=== PATIENT | female | born 1965 | race Caucasian/White ===

== ENCOUNTER → 2019-06-03 | Outpatient (CLI) | payer OTHER | END | disposition home or self-care (01) | LOC: ROC 07:20 | PROVIDERS: ATTEND Radiology Radiation Oncology | DX: Z51.0 Encounter for antineoplastic radiation therapy (principal); C78.1 Secondary malignant neoplasm of mediastinum; C50.912 Malignant neoplasm of unspecified site of left female breast; Z17.0 Estrogen receptor positive status [ER+]; Z90.13 Acquired absence of bilateral breasts and nipples | CPT/HCPCS: 77300; 77301; 77334; 77338; 99214; G0463 ==

== ENCOUNTER 2019-07-01 13:59 | Outpatient (CLI) | payer OTHER ==
[2019-07-01] MEDS ORDERED: MORP-52 PO (20:10)
[2019-07-01] MEDS ORDERED: RIVA20TA PO (20:10)
[2019-07-01] MEDS ORDERED: MORP30TA81 PO (20:10)
[2019-07-01] MEDS ORDERED: OXYC10TA6 PO (20:10)
[2019-07-01] MEDS ORDERED: OMEP40CA42 PO (20:10)
== END 2019-07-01 23:59 | disposition home or self-care (01) ==
LOC: ROC 13:59
PROVIDERS: ATTEND Radiology Radiation Oncology
DX: C78.1 Secondary malignant neoplasm of mediastinum (principal); Z90.13 Acquired absence of bilateral breasts and nipples; Z85.3 Personal history of malignant neoplasm of breast; Z92.3 Personal history of irradiation
CPT/HCPCS: 99212; G0463

== ENCOUNTER 2019-07-01 14:39 | Inpatient (IN) | payer OTHER ==
[~2019-07-01] VITALS: Ht 160 cm; Wt 62.8 kg
--- NOTE | 2019-07-01 14:54 | NUR ---
EKG done in triage
[2019-07-01] MEDS ORDERED: SODIUM CHLORIDE FLUSH 10ML SYR IVF ONE (15:30)
[2019-07-01] MEDS ORDERED: SODIUM CHLORIDE 0.9% 1,000ML IVBOLUS ONE (15:30)
--- NOTE | 2019-07-01 15:52 | NUR ---
PT CAME IN CO OF SOB X2DAYS. DENIES FEVER, COLD, CHILLS. MD IS BEDSIDE FOR EVALUATION. PT PLACED ON 2LITERS VIA NC AND IS 95%. 2 BLANKETS PROVIDED.
[2019-07-01 16:04] LABS: INTERNATIONAL NORMALIZED RATIO 1.03 (0.93-1.1); PROTHROMBIN TIME 10.9 Seconds (9.6-11.5)
[2019-07-01 16:06] LABS: ALANINE AMINOTRANSFERASE 62 U/L (12-78); ALBUMIN 2.6 g/dL (3.4-5.0); ANION GAP 12 mmol/L (5-15); CALCIUM 8.1 mg/dL (8.5-10.1); CHLORIDE 102 mmol/L (98-107)
[2019-07-01 16:11] LABS: CREATININE 0.74 mg/dL (0.55-1.02)
[2019-07-01 16:11] LABS: MICROSCOPIC INDICATED
[2019-07-01 16:12] LABS: ALKALINE PHOSPHATASE 105 U/L (45-117); BILIRUBIN,TOTAL 0.8 mg/dL (0.2-1.0); TOTAL PROTEIN 7.6 g/dL (6.4-8.2); TROPONIN I < 0.015 ng/mL (0.000-0.045)
[2019-07-01 16:20] LABS: CULTURE INDICATED? NO
[2019-07-01 16:27] LABS: BASOPHILS % (AUTO) 0 % (0-1); EOSINOPHILS # (AUTO) 0.11 x10^3/uL (0-0.4); EOSINOPHILS % (AUTO) 2 % (1-7); LYMPHOCYTES # (AUTO) 0.27 x10^3/uL (1-3.4); LYMPHOCYTES % (AUTO) 5 % (22-44); MD MORPH REVIEW ONLY; MEAN CORPUSCULAR HEMOGLOBIN 29.3 pg (27.0-34.8); MEAN CORPUSCULAR HGB CONC 32.7 g/dL (32.4-35.8); MEAN CORPUSCULAR VOLUME 89.8 fL (80-100); MONOCYTES # (AUTO) 0.42 x10^3/uL (0.2-0.8); MONOCYTES % (AUTO) 8 % (2-9); NEUTROPHILS # (AUTO) 4.56 x10^3/uL (1.8-6.8); NEUTROPHILS % (AUTO) 85 % (42-75); PLATELET COUNT 225 x10^3/uL (130-400)
[2019-07-01 16:28] LABS: ANISOCYTOSIS 1+; POLYCHROMASIA 1+
[2019-07-01 16:29] LABS: <PLATELET ESTIMATE> ADEQUATE; OVALOCYTES 1+; SMALL PLATELETS 1+
--- NOTE | 2019-07-01 16:32 | NUR ---
PT RESTING IN GURNEY. BLANKET WARMER PROVIDED. FAMILY MEMBER IS BEDSIDE. NO NEEDS AT THIS TIME
[2019-07-01] MEDS ORDERED: OMNIPAQUE 350 MG/ML, 100ML BOTTLE ONE (17:18)
--- NOTE | 2019-07-01 17:41 | NUR ---
TASK RN: PT AMBULATORY WITH STEADY GAIT TO BATHROOM.
[2019-07-01] MEDS ORDERED: VANCOMYCIN PER PHARMACY MC PRN (18:00)
[2019-07-01] MEDS ORDERED: LEVOFLOXACIN/PMX 750MG/150ML 150 ML IV ONE (18:00)
--- NOTE | 2019-07-01 18:05 | NUR ---
BEDSIDE REPORT TO OXANA BOBO.
--- NOTE | 2019-07-01 18:06 | NUR ---
PT RESTING IN [facility]. AWAITING FOR ROOM FOR ADMIT
[2019-07-01] MEDS ORDERED: ACETAMINOPHEN 325 MG TABLET PO PRN (18:30)
[2019-07-01] MEDS ORDERED: ENOXAPARIN 40 MG/0.4 ML SQ SCH (18:30)
[2019-07-01] MEDS ORDERED: POTASSIUM CHLORIDE 20 MEQ TAB.ER.PRT PO ONE (18:30)
[2019-07-01] MEDS ORDERED: morphine SULFATE 10 MG/ML, 1ML IVPush PRN (18:30)
[2019-07-01 19:28] VITALS: BP 116/81
[2019-07-01] MEDS ORDERED: MORPHINE SULFATE 4 MG/ML, 1ML ONE (19:57)
[2019-07-01] MEDS ORDERED: MORP30TA81 PO (20:10)
[2019-07-01] MEDS ORDERED: MORP-52 PO (20:10)
[2019-07-01] MEDS ORDERED: RIVA20TA PO (20:10)
[2019-07-01] MEDS ORDERED: OMEP40CA42 PO (20:10)
[2019-07-01] MEDS ORDERED: OXYC10TA6 PO (20:10)
[2019-07-01] MEDS ORDERED: OXYcodone IR 5MG TABLET PO PRN (20:30)
[2019-07-01] MEDS: MEROPENEM 1 GM in SODIUM CHLORIDE 0.9% 100 ML IV SCH (21:17)
[2019-07-01] MEDS: SODIUM CHLORIDE 0.9% 1,000 ML IV SCH (21:17)
[2019-07-01] MEDS ORDERED: BENZONATATE 100 MG CAPSULE PO PRN (21:30)
[2019-07-02 02:31] VITALS: BP 133/85
[2019-07-02] MEDS: MEROPENEM 1 GM in SODIUM CHLORIDE 0.9% 100 ML IV SCH ×3 (04:54→20:25)
[2019-07-02] MEDS: SODIUM CHLORIDE 0.9% 1,000 ML IV SCH ×3 (04:58→23:29)
[2019-07-02] MEDS: OMEPRAZOLE 20 MG CAPSULE.DR PO SCH (05:02)
[2019-07-02 05:19] LABS: CALCIUM 7.8 mg/dL (8.5-10.1); CHLORIDE 105 mmol/L (98-107)
[2019-07-02 05:22] LABS: ANION GAP 6 mmol/L (5-15); CREATININE 0.51 mg/dL (0.55-1.02)
[2019-07-02 05:36] LABS: BASOPHILS # (AUTO) 0.01 x10^3/uL (0-0.1); BASOPHILS % (AUTO) 0 % (0-1); EOSINOPHILS # (AUTO) 0.23 x10^3/uL (0-0.4); EOSINOPHILS % (AUTO) 4 % (1-7); LYMPHOCYTES # (AUTO) 0.36 x10^3/uL (1-3.4); LYMPHOCYTES % (AUTO) 6 % (22-44); MD NO; MEAN CORPUSCULAR HEMOGLOBIN 29.3 pg (27.0-34.8); MEAN CORPUSCULAR HGB CONC 32.8 g/dL (32.4-35.8); MEAN CORPUSCULAR VOLUME 89.2 fL (80-100); MEAN PLATELET VOLUME 6.9 fL (7.4-10.4); MONOCYTES # (AUTO) 0.35 x10^3/uL (0.2-0.8); MONOCYTES % (AUTO) 6 % (2-9); NEUTROPHILS % (AUTO) 84 % (42-75); PLATELET COUNT 282 x10^3/uL (130-400); RED BLOOD COUNT 4.04 x10^6/uL (3.82-5.3)
[2019-07-02] MEDS ORDERED: POTASSIUM CHLORIDE 10% 40 MEQ/30 ML UDC PO ONE (07:30)
[2019-07-02] MEDS ORDERED: POTASSIUM CHLORIDE 20 MEQ TAB.ER.PRT ONE (08:29)
[2019-07-02 09:01] VITALS: BP 125/88
[2019-07-02] MEDS ORDERED: VANCOMYCIN PER PHARMACY MC PRN (10:00)
[2019-07-02] MEDS ORDERED: PHARMACOKINETIC MONITORING MC PRN (10:30)
[2019-07-02] MEDS ORDERED: PHARMACOKINETIC CONSULTATION MC ONE (10:30)
[2019-07-02] MEDS ORDERED: VANCOMYCIN 1,400 MG in SODIUM CHLORIDE 0.9% 250 ML IV ONE (10:30)
[2019-07-02 11:16] VITALS: BP 127/88
[2019-07-02] MEDS: methylPREDNISolone SOD SUCC 125 MG/2 ML IVPush SCH ×2 (11:19→20:25)
[2019-07-02 15:07] VITALS: BP 123/86
[2019-07-02] MEDS: RIVAROXABAN 20 MG TABLET PO SCH (16:42)
[2019-07-02 18:39] VITALS: BP 137/83
[2019-07-02] MEDS ORDERED: VANCOMYCIN PMX 1GM/200ML 200 ML IVPB SCH (23:00)
[2019-07-02] MEDS: VANCOMYCIN 1,200 MG in SODIUM CHLORIDE 0.9% 250 ML IV SCH (23:29)
[2019-07-03 01:18] VITALS: BP 129/84
[2019-07-03] MEDS: methylPREDNISolone SOD SUCC 125 MG/2 ML IVPush SCH ×3 (03:10→20:30)
[2019-07-03] MEDS: MEROPENEM 1 GM in SODIUM CHLORIDE 0.9% 100 ML IV SCH ×3 (05:24→23:23)
[2019-07-03 05:44] VITALS: BP 135/93
[2019-07-03] MEDS: OMEPRAZOLE 20 MG CAPSULE.DR PO SCH (06:09)
[2019-07-03 07:12] LABS: ANION GAP 6 mmol/L (5-15); CALCIUM 7.8 mg/dL (8.5-10.1); CHLORIDE 112 mmol/L (98-107)
[2019-07-03 07:16] LABS: TROPONIN I < 0.015 ng/mL (0.000-0.045)
[2019-07-03 07:25] LABS: MEAN CORPUSCULAR HEMOGLOBIN 29.5 pg (27.0-34.8); MEAN CORPUSCULAR VOLUME 89.5 fL (80-100); MEAN PLATELET VOLUME 6.9 fL (7.4-10.4); PLATELET COUNT 318 x10^3/uL (130-400); RED BLOOD COUNT 4.03 x10^6/uL (3.82-5.3); RED CELL DISTRIBUTION WIDTH 21.3 % (9.6-15.2)
[2019-07-03 07:38] LABS: BASOPHILS % (AUTO) 0 % (0-1); EOSINOPHILS % (AUTO) 0 % (1-7); LYMPHOCYTES # (AUTO) 0.17 x10^3/uL (1-3.4); LYMPHOCYTES % (AUTO) 4 % (22-44); MD SCAN; MONOCYTES # (AUTO) 0.09 x10^3/uL (0.2-0.8); MONOCYTES % (AUTO) 2 % (2-9); NEUTROPHILS # (AUTO) 4.38 x10^3/uL (1.8-6.8); NEUTROPHILS % (AUTO) 94 % (42-75)
[2019-07-03 07:45] VITALS: BP 120/82
[2019-07-03] MEDS ORDERED: POTASSIUM CHLORIDE 40 MEQ in SODIUM CHLORIDE 0.9% 500 ML IV ONE (08:30)
[2019-07-03 11:50] LABS: TROPONIN I < 0.015 ng/mL (0.000-0.045)
[2019-07-03 13:50] VITALS: BP 137/88
[2019-07-03] MEDS: VANCOMYCIN 1,200 MG in SODIUM CHLORIDE 0.9% 250 ML IV SCH (14:30)
[2019-07-03 16:27] LABS: TROPONIN I < 0.015 ng/mL (0.000-0.045)
[2019-07-03] MEDS: RIVAROXABAN 20 MG TABLET PO SCH (16:48)
[2019-07-03] MEDS: SODIUM CHLORIDE 0.9% 1,000 ML IV SCH (18:40)
[2019-07-03 18:59] VITALS: BP 129/87
[2019-07-04 00:43] VITALS: BP 117/81
[2019-07-04] MEDS: VANCOMYCIN 1,200 MG in SODIUM CHLORIDE 0.9% 250 ML IV SCH (02:05)
[2019-07-04] MEDS: methylPREDNISolone SOD SUCC 125 MG/2 ML IVPush SCH ×3 (04:42→21:00)
[2019-07-04] MEDS: OMEPRAZOLE 20 MG CAPSULE.DR PO SCH (04:42)
[2019-07-04 05:41] LABS: CHLORIDE 110 mmol/L (98-107)
[2019-07-04 05:44] LABS: MEAN CORPUSCULAR HEMOGLOBIN 29.4 pg (27.0-34.8); MEAN CORPUSCULAR HGB CONC 32.7 g/dL (32.4-35.8); MEAN CORPUSCULAR VOLUME 89.8 fL (80-100); MEAN PLATELET VOLUME 7.4 fL (7.4-10.4); PLATELET COUNT 322 x10^3/uL (130-400); RED BLOOD COUNT 3.78 x10^6/uL (3.82-5.3)
[2019-07-04 05:48] LABS: ANION GAP 6 mmol/L (5-15); CALCIUM 7.8 mg/dL (8.5-10.1); CREATININE 0.38 mg/dL (0.55-1.02)
[2019-07-04 06:18] LABS: BASOPHILS % (AUTO) 0 % (0-1); EOSINOPHILS # (AUTO) 0.02 x10^3/uL (0-0.4); EOSINOPHILS % (AUTO) 0 % (1-7); LYMPHOCYTES % (AUTO) 2 % (22-44); MD SCAN; MONOCYTES % (AUTO) 4 % (2-9); NEUTROPHILS # (AUTO) 7.95 x10^3/uL (1.8-6.8); NEUTROPHILS % (AUTO) 94 % (42-75)
[2019-07-04] MEDS: MEROPENEM 1 GM in SODIUM CHLORIDE 0.9% 100 ML IV SCH ×2 (07:53→16:16)
[2019-07-04] MEDS ORDERED: POTASSIUM CHLORIDE 10% 40 MEQ/30 ML UDC PO ONE (08:30)
[2019-07-04 08:47] VITALS: BP 110/72
[2019-07-04] MEDS ORDERED: POTASSIUM CHLORIDE 10 MEQ TABLET.ER ONE (09:09)
[2019-07-04] MEDS ORDERED: POTASSIUM CHLORIDE 10 MEQ TABLET.ER PO ONE (09:30)
[2019-07-04] MEDS ORDERED: SODIUM CHLORIDE 0.9% 1,000 ML IV SCH (11:00)
[2019-07-04] MEDS ORDERED: VANCOMYCIN PMX 1GM/200ML 200 ML IVPB SCH (14:30)
[2019-07-04 15:59] VITALS: BP 123/83
[2019-07-04] MEDS: GUAIFENESIN 200 MG TABLET PO SCH ×2 (16:05→21:00)
[2019-07-04] MEDS: SODIUM CHLORIDE 0.9% 1,000 ML IV SCH (16:16)
[2019-07-04] MEDS: RIVAROXABAN 20 MG TABLET PO SCH (18:07)
[2019-07-04 21:03] VITALS: BP 126/87
[2019-07-05] MEDS: MEROPENEM 1 GM in SODIUM CHLORIDE 0.9% 100 ML IV SCH ×3 (00:16→16:48)
[2019-07-05 00:17] VITALS: BP 142/92
[2019-07-05] MEDS: OMEPRAZOLE 20 MG CAPSULE.DR PO SCH (05:36)
[2019-07-05] MEDS: methylPREDNISolone SOD SUCC 125 MG/2 ML IVPush SCH ×4 (05:36→21:37)
[2019-07-05] MEDS: GUAIFENESIN 200 MG TABLET PO SCH ×4 (05:36→21:30)
[2019-07-05 05:59] LABS: ANION GAP 10 mmol/L (5-15); CHLORIDE 109 mmol/L (98-107); CREATININE 0.44 mg/dL (0.55-1.02)
[2019-07-05 06:09] LABS: BASOPHILS % (AUTO) 0 % (0-1); EOSINOPHILS % (AUTO) 0 % (1-7); LYMPHOCYTES # (AUTO) 0.18 x10^3/uL (1-3.4); LYMPHOCYTES % (AUTO) 3 % (22-44); MD NO; MEAN CORPUSCULAR HEMOGLOBIN 29.4 pg (27.0-34.8); MEAN CORPUSCULAR HGB CONC 32.5 g/dL (32.4-35.8); MEAN CORPUSCULAR VOLUME 90.4 fL (80-100); MONOCYTES # (AUTO) 0.37 x10^3/uL (0.2-0.8); MONOCYTES % (AUTO) 6 % (2-9); NEUTROPHILS # (AUTO) 6.06 x10^3/uL (1.8-6.8); NEUTROPHILS % (AUTO) 92 % (42-75); PLATELET COUNT 322 x10^3/uL (130-400); RED BLOOD COUNT 4.01 x10^6/uL (3.82-5.3); RED CELL DISTRIBUTION WIDTH 21.3 % (9.6-15.2)
[2019-07-05] MEDS ORDERED: POTASSIUM CHLORIDE 10% 40 MEQ/30 ML UDC PO ONE (07:30)
[2019-07-05] MEDS ORDERED: POTASSIUM CHLORIDE 10 MEQ TABLET.ER PO ONE (08:30)
[2019-07-05 08:34] VITALS: BP 130/84
[2019-07-05 14:08] VITALS: BP 131/83
[2019-07-05] MEDS: RIVAROXABAN 20 MG TABLET PO SCH (16:48)
[2019-07-05 20:56] VITALS: BP 119/78
[2019-07-06] MEDS: MEROPENEM 1 GM in SODIUM CHLORIDE 0.9% 100 ML IV SCH ×3 (00:16→16:22)
[2019-07-06 01:34] VITALS: BP 123/77
[2019-07-06] MEDS: methylPREDNISolone SOD SUCC 125 MG/2 ML IVPush SCH ×3 (05:59→21:34)
[2019-07-06] MEDS: GUAIFENESIN 200 MG TABLET PO SCH ×4 (05:59→21:34)
[2019-07-06] MEDS: ONDANSETRON 2MG/ML, 2ML IVPush PRN ×2 (06:15→12:46)
[2019-07-06] MEDS ORDERED: METOCLOPRAMIDE 5 MG/ML, 2ML IVPush PRN (08:30)
[2019-07-06 08:33] VITALS: BP 131/85
[2019-07-06] MEDS: OMEPRAZOLE 20 MG CAPSULE.DR PO SCH (08:41)
[2019-07-06 14:13] VITALS: BP 138/90
[2019-07-06] MEDS: RIVAROXABAN 20 MG TABLET PO SCH (18:04)
[2019-07-06 21:32] VITALS: BP 138/76
[2019-07-07] MEDS: MEROPENEM 1 GM in SODIUM CHLORIDE 0.9% 100 ML IV SCH ×3 (00:20→16:40)
[2019-07-07 01:15] VITALS: BP 144/96
[2019-07-07] MEDS: methylPREDNISolone SOD SUCC 125 MG/2 ML IVPush SCH (05:30)
[2019-07-07] MEDS: GUAIFENESIN 200 MG TABLET PO SCH ×4 (05:31→19:53)
[2019-07-07] MEDS: OMEPRAZOLE 20 MG CAPSULE.DR PO SCH (05:31)
[2019-07-07 07:22] VITALS: BP 121/83
[2019-07-07 07:49] LABS: ANION GAP 5 mmol/L (5-15); CALCIUM 8.6 mg/dL (8.5-10.1); CHLORIDE 104 mmol/L (98-107); CREATININE 0.41 mg/dL (0.55-1.02)
[2019-07-07 08:43] LABS: BASOPHILS # (AUTO) 0.03 x10^3/uL (0-0.1); BASOPHILS % (AUTO) 0 % (0-1); EOSINOPHILS % (AUTO) 0 % (1-7); LYMPHOCYTES # (AUTO) 0.16 x10^3/uL (1-3.4); LYMPHOCYTES % (AUTO) 2 % (22-44); MD SCAN; MEAN CORPUSCULAR HEMOGLOBIN 29.3 pg (27.0-34.8); MEAN CORPUSCULAR HGB CONC 32.4 g/dL (32.4-35.8); MEAN CORPUSCULAR VOLUME 90.6 fL (80-100); MEAN PLATELET VOLUME 6.4 fL (7.4-10.4); MONOCYTES # (AUTO) 0.34 x10^3/uL (0.2-0.8); MONOCYTES % (AUTO) 5 % (2-9); NEUTROPHILS # (AUTO) 6.42 x10^3/uL (1.8-6.8); NEUTROPHILS % (AUTO) 92 % (42-75); PLATELET COUNT 489 x10^3/uL (130-400); RED CELL DISTRIBUTION WIDTH 21.9 % (9.6-15.2)
[2019-07-07 12:42] VITALS: BP 113/77
[2019-07-07] MEDS: RIVAROXABAN 20 MG TABLET PO SCH (18:40)
[2019-07-07 20:06] VITALS: BP 123/83
[2019-07-08] MEDS: MEROPENEM 1 GM in SODIUM CHLORIDE 0.9% 100 ML IV SCH ×3 (00:35→16:00)
[2019-07-08 01:37] VITALS: BP 115/76
[2019-07-08] MEDS: OMEPRAZOLE 20 MG CAPSULE.DR PO SCH (07:27)
[2019-07-08] MEDS: GUAIFENESIN 200 MG TABLET PO SCH ×3 (07:27→16:00)
[2019-07-08 07:59] VITALS: BP 111/76
[2019-07-08] MEDS ORDERED: PRED20TA PO (08:33)
[2019-07-08] MEDS ORDERED: SULF1TAB24 PO (08:33)
[2019-07-08 12:50] VITALS: BP 100/71
[2019-07-08] MEDS: RIVAROXABAN 20 MG TABLET PO SCH (17:00)
== END 2019-07-08 18:00 | disposition home or self-care (01) | DRG 871 ==
LOC: ED 16:35 → EDIP 17:35 → 4NW 19:20 → 4WST 07-02 10:54 → 5SO 07-03 05:35
PROVIDERS: ADMIT Internal Medicine Infectious Disease; ATTEND Internal Medicine
DX: A41.9 Sepsis, unspecified organism (principal); J18.0 Bronchopneumonia, unspecified organism; J96.01 Acute respiratory failure with hypoxia; C77.9 Secondary and unspecified malignant neoplasm of lymph node, unspecified; D68.59 Other primary thrombophilia; I44.2 Atrioventricular block, complete; I47.1 Supraventricular tachycardia; I87.1 Compression of vein; C78.1 Secondary malignant neoplasm of mediastinum; C79.51 Secondary malignant neoplasm of bone; E86.0 Dehydration; E87.6 Hypokalemia; G89.29 Other chronic pain; G43.909 Migraine, unspecified, not intractable, without status migrainosus; C50.912 Malignant neoplasm of unspecified site of left female breast; R59.0 Localized enlarged lymph nodes; Z17.0 Estrogen receptor positive status [ER+]; Z79.01 Long term (current) use of anticoagulants; Z82.49 Family history of ischemic heart disease and other diseases of the circulatory system; Z85.3 Personal history of malignant neoplasm of breast; Z86.718 Personal history of other venous thrombosis and embolism; Z87.891 Personal history of nicotine dependence; Z88.0 Allergy status to penicillin; Z90.13 Acquired absence of bilateral breasts and nipples; Z92.21 Personal history of antineoplastic chemotherapy; Z88.1 Allergy status to other antibiotic agents
CPT/HCPCS: 36415; 36600; 71045; 71275; 80048; 80053; 80202; 81001; 82803; 83605; 83735; 83880; 84443; 84484; 85025; 85610; 86738; 87040; 87449; 93005; 93306; 96360; 99291; G0378; J1650; J2185; J2405; J3370; J3480; Q9967; J2270; J2930; J7030; J7040; J7050; J7512

== ENCOUNTER 2019-07-18 11:34 | Observation (INO) | payer OTHER ==
[~2019-07-18] VITALS: Ht 160 cm; Wt 60.1 kg
[~2019-07-18 11:34] MED LIST: MORP-52 PO; MORP30TA81 PO; OMEP40CA42 PO; OXYC10TA6 PO; PRED20TA PO; RIVA20TA PO; SULF1TAB24 PO
[2019-07-18] MEDS: SODIUM CHLORIDE 0.9% 1,000 ML IV SCH ×2 (11:54→19:54)
[2019-07-18] MEDS ORDERED: VANCOMYCIN PMX 1GM/200ML 200 ML IVPB ONE (12:00)
[2019-07-18 12:07] VITALS: BP 96/75
[2019-07-18] MEDS ORDERED: PLEASE ENTER HEIGHT AND WEIGHT MC SCH (12:30)
[2019-07-18] MEDS ORDERED: FENTANYL PF 100 MCG/2ML ONE (13:10)
[2019-07-18] MEDS ORDERED: VANCOMYCIN 500 MG ONE (13:10)
[2019-07-18] MEDS ORDERED: LIDOCAINE 2%, 20ML ONE (13:10)
[2019-07-18] MEDS ORDERED: MIDAZOLAM 1 MG/ML, 5ML ONE (13:10)
[2019-07-18] MEDS ORDERED: VANCOMYCIN PMX 1GM/200ML 200 ML ONE (13:11)
[2019-07-18] MEDS ORDERED: OXYcodone IR 5MG TABLET PO PRN (14:30)
[2019-07-18] MEDS ORDERED: HOLD MEDICATION MC PRN (14:30)
[2019-07-18] MEDS ORDERED: ZOLPIDEM 5MG TABLET PO PRN (14:30)
[2019-07-18] MEDS ORDERED: HYDROcodone/APAP 5/325 TABLET PO PRN (14:30)
[2019-07-18] MEDS ORDERED: ONDANSETRON 2MG/ML, 2ML IV PRN (14:30)
[2019-07-18 19:51] VITALS: BP 105/73
[2019-07-18] MEDS: SODIUM CHLORIDE FLUSH 10ML SYR IVF SCH (21:34)
[2019-07-19] MEDS ORDERED: VANCOMYCIN PMX 1GM/200ML 200 ML IVPB ONE
[2019-07-19] MEDS: SODIUM CHLORIDE 0.9% 1,000 ML IV SCH (00:31)
[2019-07-19 01:41] VITALS: BP 102/67
[2019-07-19] MEDS ORDERED: OMEPRAZOLE 20 MG CAPSULE.DR PO SCH (07:00)
[2019-07-19 08:25] VITALS: BP 93/67
[2019-07-19] MEDS: SODIUM CHLORIDE FLUSH 10ML SYR IVF SCH (08:47)
== END 2019-07-19 10:45 | disposition home or self-care (01) ==
LOC: CACL 11:34 → ORIP 14:13 → 5SO 15:12
PROVIDERS: ADMIT Internal Medicine Cardiovascular Disease; ATTEND Internal Medicine Cardiovascular Disease
DX: I49.5 Sick sinus syndrome (principal); I44.2 Atrioventricular block, complete; C79.81 Secondary malignant neoplasm of breast; I87.1 Compression of vein; Z79.01 Long term (current) use of anticoagulants; Z88.0 Allergy status to penicillin; Z79.899 Other long term (current) drug therapy
CPT/HCPCS: 33207; 36005; 71045; 96365; 99156; C1779; C1786; C1892; G0378; J2250; J3010; J3370; J3490; Q9967

== ENCOUNTER 2019-07-25 14:04 | Outpatient (CLI) | payer OTHER | END 2019-07-25 23:59 | disposition home or self-care (01) | LOC: RAD 14:04 | PROVIDERS: ATTEND Physician Assistant Medical | DX: J18.9 Pneumonia, unspecified organism (principal); I51.7 Cardiomegaly | CPT/HCPCS: 71046 ==

== ENCOUNTER 2019-07-29 16:00 | Inpatient (IN) | payer OTHER ==
[~2019-07-29] VITALS: Ht 160 cm; Wt 65.3 kg
--- NOTE | 2019-07-29 16:48 | NUR ---
THIS IS A 54 YO F W/ C/O SOB, WEAKNESS, LLQ ABD PAIN, VOMITING AND BLE EDEMA. PT WAS DX WITH PNA 3 WEEKS AGO AND HAD A PACEMAKER PALCED 1.5 WEEKS AGO. PT IS TACHYCARDIC, TACHYPNEIC AND HYPOXIC. REQUIRING 6L TO STAY >90%. WEARS 3L AT HOME. PT CONNECTED TO ALL MONITORING. RAD IN ROOM.
--- NOTE | 2019-07-29 16:52 | NUR ---
LAB IN ROOM.
--- NOTE | 2019-07-29 16:54 | NUR ---
MED REC DONE.
[2019-07-29] MEDS ORDERED: MORPHINE SULFATE 4 MG/ML, 1ML ONE (16:55)
[2019-07-29] MEDS ORDERED: SODIUM CHLORIDE FLUSH 10ML SYR IVF ONE (17:00)
[2019-07-29] MEDS ORDERED: MORPHINE SULFATE 4 MG/ML, 1ML IVPush PRN (17:00)
[2019-07-29 17:13] LABS: BASOPHILS % (AUTO) 0 % (0-1); EOSINOPHILS % (AUTO) 0 % (1-7); LYMPHOCYTES # (AUTO) 0.26 x10^3/uL (1-3.4); LYMPHOCYTES % (AUTO) 3 % (22-44); MD NO; MEAN CORPUSCULAR HEMOGLOBIN 29.3 pg (27.0-34.8); MEAN CORPUSCULAR HGB CONC 32.3 g/dL (32.4-35.8); MEAN CORPUSCULAR VOLUME 90.5 fL (80-100); MEAN PLATELET VOLUME 6.6 fL (7.4-10.4); MONOCYTES # (AUTO) 0.69 x10^3/uL (0.2-0.8); MONOCYTES % (AUTO) 8 % (2-9); NEUTROPHILS # (AUTO) 7.45 x10^3/uL (1.8-6.8); NEUTROPHILS % (AUTO) 89 % (42-75); PLATELET COUNT 400 x10^3/uL (130-400); RED BLOOD COUNT 3.81 x10^6/uL (3.82-5.3); RED CELL DISTRIBUTION WIDTH 19.4 % (9.6-15.2)
[2019-07-29 17:21] LABS: ALBUMIN 2.8 g/dL (3.4-5.0); ANION GAP 11 mmol/L (5-15); CALCIUM 8.5 mg/dL (8.5-10.1); CHLORIDE 103 mmol/L (98-107)
[2019-07-29 17:27] LABS: ALANINE AMINOTRANSFERASE 26 U/L (12-78); ALKALINE PHOSPHATASE 90 U/L (45-117); BILIRUBIN,TOTAL 0.9 mg/dL (0.2-1.0); CREATININE 0.39 mg/dL (0.55-1.02); TOTAL PROTEIN 7.2 g/dL (6.4-8.2)
--- NOTE | 2019-07-29 17:57 | NUR ---
MED VON FROM PHARMACY.
[2019-07-29] MEDS ORDERED: MEROPENEM 1 GM in SODIUM CHLORIDE 0.9% 100 ML IV ONE (18:00)
--- NOTE | 2019-07-29 18:00 | NUR ---
PT MEDICATED W/ PAIN MEDS AND NS BOLUS. PT REPORT PAIN 7/10 FROM LLQ.
[2019-07-29] MEDS ORDERED: SODIUM CHLORIDE 0.9%, 500ML IVBOLUS ONE (18:30)
--- NOTE | 2019-07-29 18:35 | NUR ---
REPORT GIVEN TO JAMARCUS DAIGLE. PT IS READY FOR TRANSFER AT THIS TIME.
--- NOTE | 2019-07-29 18:44 | NUR ---
PT TO CT.
--- NOTE | 2019-07-29 19:05 | NUR ---
PT UNABLE TO COMPLETE CT DUE TO ORTHOPNEA. PT READY FOR TRANSFER TO FLOOR.
[2019-07-29 19:31] VITALS: BP 138/86
[2019-07-29] MEDS ORDERED: hydrALAzine 20 MG/ML, 1ML IVPush PRN (21:30)
[2019-07-29] MEDS ORDERED: ACETAMINOPHEN 325 MG TABLET PO PRN (21:30)
[2019-07-29] MEDS ORDERED: KETOROLAC 30 MG/1 ML IV PRN (21:30)
[2019-07-29] MEDS ORDERED: BISACODYL 10 MG SUPP PR PRN (21:30)
[2019-07-29] MEDS: RIVAROXABAN 20 MG TABLET PO SCH (21:41)
[2019-07-29] MEDS: morphine SULFATE 10 MG/ML, 1ML IVPush PRN (21:53)
[2019-07-29] MEDS ORDERED: POTASSIUM CHLORIDE 40 MEQ in SODIUM CHLORIDE 0.9% 500 ML IV ONE (22:00)
[2019-07-29 22:20] LABS: FREE T4 (FREE THYROXINE) 1.74 ng/dL (0.76-1.46)
[2019-07-30] MEDS: morphine SULFATE 10 MG/ML, 1ML IVPush PRN ×2 (00:56→15:41)
[2019-07-30 01:14] VITALS: BP 121/86
[2019-07-30] MEDS: MEROPENEM 1 GM in SODIUM CHLORIDE 0.9% 100 ML IV SCH ×3 (02:18→18:12)
[2019-07-30 04:48] LABS: BASOPHILS % (AUTO) 0 % (0-1); EOSINOPHILS # (AUTO) 0.01 x10^3/uL (0-0.4); EOSINOPHILS % (AUTO) 0 % (1-7); LYMPHOCYTES # (AUTO) 0.36 x10^3/uL (1-3.4); LYMPHOCYTES % (AUTO) 5 % (22-44); MD NO; MEAN CORPUSCULAR HEMOGLOBIN 29.7 pg (27.0-34.8); MEAN CORPUSCULAR HGB CONC 32.7 g/dL (32.4-35.8); MEAN PLATELET VOLUME 6.5 fL (7.4-10.4); MONOCYTES # (AUTO) 1.03 x10^3/uL (0.2-0.8); MONOCYTES % (AUTO) 13 % (2-9); NEUTROPHILS # (AUTO) 6.37 x10^3/uL (1.8-6.8); NEUTROPHILS % (AUTO) 82 % (42-75); PLATELET COUNT 381 x10^3/uL (130-400); RED BLOOD COUNT 3.51 x10^6/uL (3.82-5.3); RED CELL DISTRIBUTION WIDTH 19.1 % (9.6-15.2)
[2019-07-30 04:59] LABS: ANION GAP 8 mmol/L (5-15); CHLORIDE 107 mmol/L (98-107)
[2019-07-30] MEDS ORDERED: VANCOMYCIN 1,500 MG in SODIUM CHLORIDE 0.9% 250 ML IV ONE (07:00)
[2019-07-30] MEDS ORDERED: PHARMACOKINETIC MONITORING MC PRN (07:00)
[2019-07-30] MEDS ORDERED: VANCOMYCIN PER PHARMACY MC PRN (07:00)
[2019-07-30] MEDS ORDERED: PHARMACOKINETIC CONSULTATION MC ONE (07:00)
[2019-07-30 07:25] LABS: MICROSCOPIC INDICATED
[2019-07-30 07:47] LABS: CULTURE INDICATED? YES
[2019-07-30] MEDS: POLYETHYLENE GLYCOL 17 GM PACKET PO SCH (07:54)
[2019-07-30] MEDS: OMEPRAZOLE 20 MG CAPSULE.DR PO SCH (07:54)
[2019-07-30 07:59] VITALS: BP 133/87
[2019-07-30] MEDS: AZITHROMYCIN 500 MG in SODIUM CHLORIDE 0.9% 250 ML IV SCH (13:22)
[2019-07-30 13:32] LABS: RAPID INFLUENZA A Negative (Negative); RAPID INFLUENZA B Negative (Negative)
[2019-07-30] MEDS: RIVAROXABAN 20 MG TABLET PO SCH (17:11)
[2019-07-30] MEDS ORDERED: KETOROLAC 30 MG/1 ML IVPush SCH (20:30)
[2019-07-30] MEDS: VANCOMYCIN 1,200 MG in SODIUM CHLORIDE 0.9% 250 ML IV SCH (21:18)
[2019-07-31] MEDS: MEROPENEM 1 GM in SODIUM CHLORIDE 0.9% 100 ML IV SCH ×3 (02:00→17:25)
[2019-07-31] MEDS: DILTIAZEM 5 MG/ML, 5ML IVPush PRN ×2 (02:01→04:03)
[2019-07-31 04:00] VITALS: BP 129/89
[2019-07-31] MEDS: ONDANSETRON 2MG/ML, 2ML IVPush PRN (04:14)
[2019-07-31] MEDS: DILTIAZEM 125 MG in SODIUM CHLORIDE 0.9% 100 ML IV PRN (04:58)
[2019-07-31 05:02] LABS: BASOPHILS # (AUTO) 0.01 x10^3/uL (0-0.1); BASOPHILS % (AUTO) 0 % (0-1); EOSINOPHILS # (AUTO) 0.01 x10^3/uL (0-0.4); EOSINOPHILS % (AUTO) 0 % (1-7); LYMPHOCYTES % (AUTO) 2 % (22-44); MD NO; MEAN CORPUSCULAR HEMOGLOBIN 29.7 pg (27.0-34.8); MEAN CORPUSCULAR HGB CONC 32.4 g/dL (32.4-35.8); MEAN CORPUSCULAR VOLUME 91.5 fL (80-100); MEAN PLATELET VOLUME 6.3 fL (7.4-10.4); MONOCYTES # (AUTO) 0.73 x10^3/uL (0.2-0.8); MONOCYTES % (AUTO) 9 % (2-9); NEUTROPHILS # (AUTO) 7.35 x10^3/uL (1.8-6.8); NEUTROPHILS % (AUTO) 89 % (42-75); PLATELET COUNT 400 x10^3/uL (130-400); RED BLOOD COUNT 3.52 x10^6/uL (3.82-5.3); RED CELL DISTRIBUTION WIDTH 19.7 % (9.6-15.2)
[2019-07-31 05:09] LABS: ALANINE AMINOTRANSFERASE 33 U/L (12-78); ALBUMIN 2.4 g/dL (3.4-5.0); ANION GAP 10 mmol/L (5-15); CHLORIDE 106 mmol/L (98-107)
[2019-07-31 05:12] LABS: ALKALINE PHOSPHATASE 90 U/L (45-117); BILIRUBIN,TOTAL 0.7 mg/dL (0.2-1.0); TOTAL PROTEIN 6.2 g/dL (6.4-8.2)
[2019-07-31] MEDS ORDERED: POTASSIUM CHLORIDE 20 MEQ TAB.ER.PRT PO ONE (06:30)
[2019-07-31] MEDS: OMEPRAZOLE 20 MG CAPSULE.DR PO SCH ×2 (07:30→10:05)
[2019-07-31] MEDS: POLYETHYLENE GLYCOL 17 GM PACKET PO SCH (09:00)
[2019-07-31] MEDS: VANCOMYCIN 1,200 MG in SODIUM CHLORIDE 0.9% 250 ML IV SCH ×2 (10:04→20:21)
[2019-07-31] MEDS: AZITHROMYCIN 500 MG in SODIUM CHLORIDE 0.9% 250 ML IV SCH (13:21)
[2019-07-31] MEDS: RIVAROXABAN 20 MG TABLET PO SCH (17:40)
[2019-07-31] MEDS: morphine SULFATE 10 MG/ML, 1ML IVPush PRN (18:30)
[2019-08-01] MEDS: MEROPENEM 1 GM in SODIUM CHLORIDE 0.9% 100 ML IV SCH (01:49)
[2019-08-01] MEDS: DILTIAZEM 125 MG in SODIUM CHLORIDE 0.9% 100 ML IV PRN (01:50)
[2019-08-01 04:00] VITALS: BP 124/76
[2019-08-01] MEDS ORDERED: VANCOMYCIN 1,000 MG in SODIUM CHLORIDE 0.9% 100 ML IV SCH (05:30)
[2019-08-01] MEDS ORDERED: POTASSIUM CHLORIDE 20 MEQ TAB.ER.PRT PO ONE (07:00)
[2019-08-01] MEDS ORDERED: DIGOXIN 0.25 MG/ML, 2ML IVPush SCH (08:00)
[2019-08-01] MEDS ORDERED: FILTER 0.22 MICRON IV PRN (08:30)
[2019-08-01] MEDS ORDERED: AMIODARONE 150 MG in DEXTROSE 5% 100 ML IV ONE (08:30)
[2019-08-01] MEDS: AMIODARONE 450 MG in DEXTROSE 5% 241 ML IV PRN ×2 (08:40→19:24)
[2019-08-01] MEDS: POLYETHYLENE GLYCOL 17 GM PACKET PO SCH (09:50)
[2019-08-01] MEDS: FUROSEMIDE 40 MG/4 ML IV SCH ×2 (09:50→17:24)
[2019-08-01] MEDS: morphine SULFATE 10 MG/ML, 1ML IVPush PRN ×2 (11:37→19:26)
[2019-08-01] MEDS: RIVAROXABAN 20 MG TABLET PO SCH (17:24)
[2019-08-01] MEDS ORDERED: ALBUTEROL/IPRATROPIUM 2.5MG/0.5MG, 3 ML ONE (20:54)
[2019-08-01] MEDS ORDERED: ALBUTEROL/IPRATROPIUM 2.5MG/0.5MG, 3 ML NPPB PRN (21:30)
[2019-08-02 04:22] LABS: BASOPHILS # (AUTO) 0.01 x10^3/uL (0-0.1); BASOPHILS % (AUTO) 0 % (0-1); EOSINOPHILS # (AUTO) 0.12 x10^3/uL (0-0.4); EOSINOPHILS % (AUTO) 2 % (1-7); LYMPHOCYTES # (AUTO) 0.25 x10^3/uL (1-3.4); LYMPHOCYTES % (AUTO) 4 % (22-44); MD NO; MEAN CORPUSCULAR HEMOGLOBIN 29.4 pg (27.0-34.8); MEAN CORPUSCULAR HGB CONC 32.7 g/dL (32.4-35.8); MEAN PLATELET VOLUME 6.5 fL (7.4-10.4); MONOCYTES # (AUTO) 0.48 x10^3/uL (0.2-0.8); MONOCYTES % (AUTO) 7 % (2-9); NEUTROPHILS # (AUTO) 5.66 x10^3/uL (1.8-6.8); NEUTROPHILS % (AUTO) 87 % (42-75); PLATELET COUNT 487 x10^3/uL (130-400); RED BLOOD COUNT 3.55 x10^6/uL (3.82-5.3); RED CELL DISTRIBUTION WIDTH 18.7 % (9.6-15.2)
[2019-08-02 04:32] LABS: ANION GAP 6 mmol/L (5-15); CALCIUM 7.9 mg/dL (8.5-10.1); CHLORIDE 98 mmol/L (98-107); CREATININE 0.32 mg/dL (0.55-1.02)
[2019-08-02 05:00] VITALS: BP 122/82
[2019-08-02] MEDS: FUROSEMIDE 40 MG/4 ML IV SCH ×2 (08:07→18:04)
[2019-08-02] MEDS: OMEPRAZOLE 20 MG CAPSULE.DR PO SCH (08:07)
[2019-08-02] MEDS: POLYETHYLENE GLYCOL 17 GM PACKET PO SCH (08:07)
[2019-08-02] MEDS: POTASSIUM CHLORIDE 20 MEQ TAB.ER.PRT PO SCH ×2 (08:07→18:04)
[2019-08-02] MEDS: AMIODARONE 200 MG TABLET PO SCH ×2 (10:07→19:42)
[2019-08-02] MEDS: morphine SULFATE 10 MG/ML, 1ML IVPush PRN ×3 (14:40→22:19)
[2019-08-02] MEDS: RIVAROXABAN 20 MG TABLET PO SCH (18:04)
[2019-08-03 04:00] VITALS: BP 104/95
[2019-08-03] MEDS: FUROSEMIDE 40 MG/4 ML IV SCH ×2 (08:44→17:22)
[2019-08-03] MEDS: POTASSIUM CHLORIDE 20 MEQ TAB.ER.PRT PO SCH ×2 (08:45→17:22)
[2019-08-03] MEDS: POLYETHYLENE GLYCOL 17 GM PACKET PO SCH (08:45)
[2019-08-03] MEDS: AMIODARONE 200 MG TABLET PO SCH ×2 (08:45→19:56)
[2019-08-03] MEDS: OMEPRAZOLE 20 MG CAPSULE.DR PO SCH (09:02)
[2019-08-03] MEDS: morphine SULFATE 10 MG/ML, 1ML IVPush PRN ×3 (09:02→19:56)
[2019-08-03 09:57] LABS: ANION GAP 7 mmol/L (5-15); CALCIUM 8.9 mg/dL (8.5-10.1); CHLORIDE 95 mmol/L (98-107); CREATININE 0.39 mg/dL (0.55-1.02)
[2019-08-03] MEDS ORDERED: POTASSIUM CHLORIDE 20 MEQ TAB.ER.PRT PO ONE (11:00)
[2019-08-03] MEDS: RIVAROXABAN 20 MG TABLET PO SCH (17:22)
[2019-08-04] MEDS: morphine SULFATE 10 MG/ML, 1ML IVPush PRN ×4 (02:36→17:59)
[2019-08-04 04:00] VITALS: BP 118/93
[2019-08-04 04:47] LABS: ANION GAP 6 mmol/L (5-15); CALCIUM 8.7 mg/dL (8.5-10.1); CHLORIDE 97 mmol/L (98-107)
[2019-08-04 04:48] LABS: CREATININE 0.34 mg/dL (0.55-1.02)
[2019-08-04] MEDS: AMIODARONE 200 MG TABLET PO SCH ×2 (08:01→20:54)
[2019-08-04] MEDS: POTASSIUM CHLORIDE 20 MEQ TAB.ER.PRT PO SCH (08:01)
[2019-08-04] MEDS: FUROSEMIDE 40 MG/4 ML IV SCH ×2 (08:01→17:59)
[2019-08-04] MEDS: POLYETHYLENE GLYCOL 17 GM PACKET PO SCH (08:01)
[2019-08-04] MEDS: OMEPRAZOLE 20 MG CAPSULE.DR PO SCH (08:03)
[2019-08-04] MEDS: METHYLNALTREXONE 12 MG/0.6 ML SYR SQ SCH (13:32)
[2019-08-04 15:02] VITALS: BP 122/87
[2019-08-04] MEDS: ONDANSETRON 2MG/ML, 2ML IVPush PRN (15:30)
[2019-08-04] MEDS: METOPROLOL TARTRATE 25 MG TAB PO SCH ×2 (15:59→23:30)
[2019-08-04] MEDS ORDERED: METOPROLOL TARTRATE 25 MG TAB PO SCH (16:00)
[2019-08-04 17:57] VITALS: BP 105/73
[2019-08-04] MEDS: RIVAROXABAN 20 MG TABLET PO SCH (17:59)
[2019-08-04 18:45] VITALS: BP 111/81
[2019-08-05 00:25] VITALS: BP 97/69
[2019-08-05 03:56] VITALS: BP 103/65
[2019-08-05] MEDS: morphine SULFATE 10 MG/ML, 1ML IVPush PRN ×3 (04:59→17:09)
[2019-08-05 07:53] VITALS: BP 130/80
[2019-08-05] MEDS: FUROSEMIDE 40 MG/4 ML IV SCH ×2 (08:10→17:08)
[2019-08-05] MEDS: POLYETHYLENE GLYCOL 17 GM PACKET PO SCH (08:10)
[2019-08-05] MEDS: AMIODARONE 200 MG TABLET PO SCH ×2 (08:11→20:29)
[2019-08-05] MEDS: METOPROLOL TARTRATE 25 MG TAB PO SCH ×3 (08:11→23:52)
[2019-08-05] MEDS: POTASSIUM CHLORIDE 20 MEQ TAB.ER.PRT PO SCH (08:11)
[2019-08-05] MEDS: OMEPRAZOLE 20 MG CAPSULE.DR PO SCH (08:21)
[2019-08-05 13:04] VITALS: BP 92/60
[2019-08-05] MEDS: RIVAROXABAN 20 MG TABLET PO SCH (17:09)
[2019-08-05 19:10] VITALS: BP 101/71
[2019-08-06 00:31] VITALS: BP 96/67
[2019-08-06 05:52] LABS: MEAN CORPUSCULAR HEMOGLOBIN 29.2 pg (27.0-34.8); MEAN CORPUSCULAR HGB CONC 32.5 g/dL (32.4-35.8); MEAN PLATELET VOLUME 6.7 fL (7.4-10.4); PLATELET COUNT 403 x10^3/uL (130-400); RED BLOOD COUNT 3.92 x10^6/uL (3.82-5.3); RED CELL DISTRIBUTION WIDTH 19.4 % (9.6-15.2)
[2019-08-06 06:02] LABS: ANION GAP 6 mmol/L (5-15); CALCIUM 9.3 mg/dL (8.5-10.1); CHLORIDE 93 mmol/L (98-107)
[2019-08-06 06:03] LABS: CREATININE 0.42 mg/dL (0.55-1.02)
[2019-08-06 06:12] LABS: BASOPHILS % (AUTO) 0 % (0-1); EOSINOPHILS # (AUTO) 0.16 x10^3/uL (0-0.4); EOSINOPHILS % (AUTO) 1 % (1-7); LYMPHOCYTES # (AUTO) 0.37 x10^3/uL (1-3.4); LYMPHOCYTES % (AUTO) 3 % (22-44); MD SCAN; MONOCYTES % (AUTO) 11 % (2-9); NEUTROPHILS # (AUTO) 12.11 x10^3/uL (1.8-6.8); NEUTROPHILS % (AUTO) 85 % (42-75)
[2019-08-06] MEDS: METOPROLOL TARTRATE 25 MG TAB PO SCH ×4 (08:00→23:59)
[2019-08-06] MEDS: POLYETHYLENE GLYCOL 17 GM PACKET PO SCH (08:59)
[2019-08-06] MEDS: OMEPRAZOLE 20 MG CAPSULE.DR PO SCH (09:00)
[2019-08-06] MEDS: AMIODARONE 200 MG TABLET PO SCH ×2 (09:00→20:26)
[2019-08-06] MEDS: POTASSIUM CHLORIDE 20 MEQ TAB.ER.PRT PO SCH (09:00)
[2019-08-06] MEDS: FUROSEMIDE 40 MG TABLET PO SCH ×2 (09:01→16:27)
[2019-08-06] MEDS: HYDROcodone/APAP 5/325 TABLET PO PRN (09:10)
[2019-08-06 09:19] VITALS: BP 89/61
[2019-08-06] MEDS: morphine SULFATE 10 MG/ML, 1ML IVPush PRN ×3 (10:12→16:27)
[2019-08-06] MEDS: METHYLNALTREXONE 12 MG/0.6 ML SYR SQ SCH (11:45)
[2019-08-06 12:43] VITALS: BP_SYST 104; BP_SYST 109; BP_DIAS 69; BP_DIAS 77
[2019-08-06] MEDS: RIVAROXABAN 20 MG TABLET PO SCH (16:27)
[2019-08-06 18:42] VITALS: BP 116/72
[2019-08-07] MEDS: HYDROcodone/APAP 5/325 TABLET PO PRN
[2019-08-07 00:15] VITALS: BP 104/71
[2019-08-07 05:36] LABS: MEAN CORPUSCULAR HEMOGLOBIN 29.1 pg (27.0-34.8); MEAN CORPUSCULAR HGB CONC 32.6 g/dL (32.4-35.8); MEAN CORPUSCULAR VOLUME 89.3 fL (80-100); MEAN PLATELET VOLUME 6.9 fL (7.4-10.4); PLATELET COUNT 382 x10^3/uL (130-400); RED BLOOD COUNT 3.78 x10^6/uL (3.82-5.3); RED CELL DISTRIBUTION WIDTH 18.9 % (9.6-15.2)
[2019-08-07 05:51] LABS: ANION GAP 6 mmol/L (5-15); CALCIUM 8.8 mg/dL (8.5-10.1); CHLORIDE 91 mmol/L (98-107); CREATININE 0.41 mg/dL (0.55-1.02)
[2019-08-07] MEDS: ONDANSETRON 2MG/ML, 2ML IVPush PRN ×3 (05:51→20:30)
[2019-08-07] MEDS: morphine SULFATE 10 MG/ML, 1ML IVPush PRN ×4 (05:51→17:02)
[2019-08-07 06:00] LABS: BASOPHILS % (AUTO) 0 % (0-1); EOSINOPHILS # (AUTO) 0.03 x10^3/uL (0-0.4); EOSINOPHILS % (AUTO) 0 % (1-7); LYMPHOCYTES # (AUTO) 0.41 x10^3/uL (1-3.4); LYMPHOCYTES % (AUTO) 3 % (22-44); MD SCAN; MONOCYTES # (AUTO) 2.27 x10^3/uL (0.2-0.8); MONOCYTES % (AUTO) 14 % (2-9); NEUTROPHILS % (AUTO) 84 % (42-75)
[2019-08-07 07:49] VITALS: BP 100/67
[2019-08-07] MEDS: POTASSIUM CHLORIDE 20 MEQ TAB.ER.PRT PO SCH (08:46)
[2019-08-07] MEDS: AMIODARONE 200 MG TABLET PO SCH ×2 (08:46→20:31)
[2019-08-07] MEDS: METOPROLOL TARTRATE 25 MG TAB PO SCH ×3 (08:46→17:03)
[2019-08-07] MEDS: FUROSEMIDE 40 MG TABLET PO SCH ×2 (08:47→17:03)
[2019-08-07] MEDS: POLYETHYLENE GLYCOL 17 GM PACKET PO SCH (08:47)
[2019-08-07] MEDS: OMEPRAZOLE 20 MG CAPSULE.DR PO SCH (08:55)
[2019-08-07 14:28] VITALS: BP 93/63
[2019-08-07] MEDS: RIVAROXABAN 20 MG TABLET PO SCH (17:02)
[2019-08-07 18:36] VITALS: BP 112/74
[2019-08-08 00:21] VITALS: BP 103/68
[2019-08-08 00:42] VITALS: BP 95/64
[2019-08-08] MEDS: morphine SULFATE 10 MG/ML, 1ML IVPush PRN ×5 (00:44→21:59)
[2019-08-08 05:28] LABS: MEAN CORPUSCULAR HEMOGLOBIN 29.1 pg (27.0-34.8); MEAN CORPUSCULAR HGB CONC 32.8 g/dL (32.4-35.8); MEAN CORPUSCULAR VOLUME 88.6 fL (80-100); MEAN PLATELET VOLUME 7.2 fL (7.4-10.4); PLATELET COUNT 403 x10^3/uL (130-400); RED BLOOD COUNT 3.54 x10^6/uL (3.82-5.3); RED CELL DISTRIBUTION WIDTH 18.9 % (9.6-15.2)
[2019-08-08 05:38] LABS: ANION GAP 7 mmol/L (5-15); CALCIUM 8.7 mg/dL (8.5-10.1); CHLORIDE 90 mmol/L (98-107)
[2019-08-08 05:40] LABS: CREATININE 0.41 mg/dL (0.55-1.02)
[2019-08-08 06:12] LABS: BASOPHILS % (AUTO) 0 % (0-1); EOSINOPHILS # (AUTO) 0.01 x10^3/uL (0-0.4); EOSINOPHILS % (AUTO) 0 % (1-7); LYMPHOCYTES # (AUTO) 0.37 x10^3/uL (1-3.4); LYMPHOCYTES % (AUTO) 2 % (22-44); MD SCAN; MONOCYTES # (AUTO) 2.04 x10^3/uL (0.2-0.8); MONOCYTES % (AUTO) 13 % (2-9); NEUTROPHILS % (AUTO) 85 % (42-75)
[2019-08-08 07:42] VITALS: BP 112/71
[2019-08-08] MEDS: ONDANSETRON 2MG/ML, 2ML IVPush PRN ×2 (08:31→17:31)
[2019-08-08] MEDS: POTASSIUM CHLORIDE 20 MEQ TAB.ER.PRT PO SCH (08:31)
[2019-08-08] MEDS: FUROSEMIDE 40 MG TABLET PO SCH ×2 (08:32→15:55)
[2019-08-08] MEDS: METOPROLOL TARTRATE 25 MG TAB PO SCH ×4 (08:32→23:50)
[2019-08-08] MEDS: AMIODARONE 200 MG TABLET PO SCH ×2 (08:32→20:00)
[2019-08-08] MEDS: POLYETHYLENE GLYCOL 17 GM PACKET PO SCH (08:33)
[2019-08-08] MEDS: OMEPRAZOLE 20 MG CAPSULE.DR PO SCH (08:38)
[2019-08-08] MEDS: METHYLNALTREXONE 12 MG/0.6 ML SYR SQ SCH (11:50)
[2019-08-08 14:10] VITALS: BP 108/72
[2019-08-08] MEDS: RIVAROXABAN 20 MG TABLET PO SCH (15:55)
[2019-08-08 18:39] VITALS: BP 107/75
[2019-08-08 23:50] VITALS: BP 110/75
[2019-08-09 01:19] VITALS: BP 108/74
[2019-08-09] MEDS: morphine SULFATE 10 MG/ML, 1ML IVPush PRN ×2 (01:45→04:44)
[2019-08-09] MEDS: ONDANSETRON 2MG/ML, 2ML IVPush PRN (01:50)
[2019-08-09 05:36] LABS: MEAN CORPUSCULAR HGB CONC 32.4 g/dL (32.4-35.8); MEAN CORPUSCULAR VOLUME 89.4 fL (80-100); MEAN PLATELET VOLUME 7.3 fL (7.4-10.4); PLATELET COUNT 419 x10^3/uL (130-400); RED BLOOD COUNT 3.46 x10^6/uL (3.82-5.3); RED CELL DISTRIBUTION WIDTH 19.1 % (9.6-15.2)
[2019-08-09 05:41] LABS: ANION GAP 8 mmol/L (5-15); CALCIUM 8.7 mg/dL (8.5-10.1); CHLORIDE 90 mmol/L (98-107); CREATININE 0.39 mg/dL (0.55-1.02)
[2019-08-09 06:17] LABS: BASOPHILS % (AUTO) 0 % (0-1); EOSINOPHILS # (AUTO) 0.01 x10^3/uL (0-0.4); EOSINOPHILS % (AUTO) 0 % (1-7); LYMPHOCYTES # (AUTO) 0.39 x10^3/uL (1-3.4); LYMPHOCYTES % (AUTO) 3 % (22-44); MD SCAN; MONOCYTES # (AUTO) 1.83 x10^3/uL (0.2-0.8); MONOCYTES % (AUTO) 11 % (2-9); NEUTROPHILS # (AUTO) 13.82 x10^3/uL (1.8-6.8); NEUTROPHILS % (AUTO) 86 % (42-75)
[2019-08-09 06:32] VITALS: BP 103/68
[2019-08-09] MEDS: FUROSEMIDE 40 MG TABLET PO SCH (07:53)
[2019-08-09] MEDS: METOPROLOL TARTRATE 25 MG TAB PO SCH (07:54)
[2019-08-09] MEDS: POTASSIUM CHLORIDE 20 MEQ TAB.ER.PRT PO SCH (07:54)
[2019-08-09] MEDS: AMIODARONE 200 MG TABLET PO SCH (07:54)
[2019-08-09] MEDS: POLYETHYLENE GLYCOL 17 GM PACKET PO SCH (07:55)
[2019-08-09] MEDS: OMEPRAZOLE 20 MG CAPSULE.DR PO SCH (07:55)
[2019-08-09] MEDS ORDERED: MORP30TA81 PO (12:28)
[2019-08-09] MEDS ORDERED: AMIO200T42 PO (12:28)
[2019-08-09] MEDS ORDERED: OXYC10TA6 PO (12:28)
[2019-08-09] MEDS ORDERED: METO-93 PO (12:28)
[2019-08-09] MEDS ORDERED: ONDA4TAB13 SL (12:30)
[2019-08-09] MEDS ORDERED: SENN-204 PO (12:30)
[2019-08-09 13:33] VITALS: BP 89/55
== END 2019-08-09 15:18 | disposition home or self-care (01) | DRG 196 ==
LOC: ED 16:33 → EDIP 17:54 → 4WST 19:40 → ICU 07-30 10:21 → CCU 07-31 13:49 → 4WST 08-04 13:18
PROVIDERS: ADMIT Family Medicine; ATTEND Family Medicine
PROC: 5A09357 Assistance with Respiratory Ventilation, Less than 24 Consecutive Hours, Continuous Positive Airway Pressure (ICD-10-PCS; principal; 2019-07-31)
DX: J84.9 Interstitial pulmonary disease, unspecified (principal); J96.21 Acute and chronic respiratory failure with hypoxia; E43 Unspecified severe protein-calorie malnutrition; F11.20 Opioid dependence, uncomplicated; D68.69 Other thrombophilia; I48.92 Unspecified atrial flutter; C78.1 Secondary malignant neoplasm of mediastinum; C79.51 Secondary malignant neoplasm of bone; Z88.0 Allergy status to penicillin; Z88.8 Allergy status to other drugs, medicaments and biological substances; D64.9 Anemia, unspecified; E87.6 Hypokalemia; G89.3 Neoplasm related pain (acute) (chronic); I48.91 Unspecified atrial fibrillation; I49.5 Sick sinus syndrome; Z99.81 Dependence on supplemental oxygen; Z20.828 Contact with and (suspected) exposure to other viral communicable diseases; C50.919 Malignant neoplasm of unspecified site of unspecified female breast; K59.03 Drug induced constipation; T40.605A Adverse effect of unspecified narcotics, initial encounter; T50.1X5A Adverse effect of loop [high-ceiling] diuretics, initial encounter; K21.9 Gastro-esophageal reflux disease without esophagitis; Z79.01 Long term (current) use of anticoagulants; Z90.13 Acquired absence of bilateral breasts and nipples; Z92.3 Personal history of irradiation; Z95.0 Presence of cardiac pacemaker; Z68.25 Body mass index [BMI] 25.0-25.9, adult; Y92.89 Other specified places as the place of occurrence of the external cause
CPT/HCPCS: 36415; 36600; 71045; 80048; 80053; 80202; 81001; 82728; 82803; 83605; 83615; 83735; 83880; 84145; 84439; 84443; 84481; 85025; 87040; 87070; 87081; 87086; 87205; 87400; 87880; 93005; 94660; 96374; G0378; J0456; J1940; J2185; J2405; J3370; J3480; J7060; J0282; J2270; J7040; J7050

== ENCOUNTER 2019-08-14 14:09 | Inpatient (IN) | payer OTHER ==
[~2019-08-14] VITALS: Ht 160 cm; Wt 59.1 kg
[~2019-08-14 14:09] MED LIST changes: +AMIO200T42 PO; +METO-93 PO; +ONDA4TAB13 SL; +SENN-204 PO
--- NOTE | 2019-08-14 14:20 | NUR ---
Pt BIB [facility] from home, c/o SOB increasing in severity x2 days. Pt is normally on a high flow NC at 8L/min at home and was sating 88% on this when EMS arrived at the house. Pt tripoding, tachypnic. 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 Pt denies pain at this time, no cough or sore throat. Unable to obtain temperature at this time due to pt being unable to close mouth and unwilling to allow herself to be lied down flat for a core temp. Pt placed in gown, positioned for comfort in bed, all safety measures observed.
[2019-08-14] MEDS ORDERED: SODIUM CHLORIDE FLUSH 10ML SYR IVF ONE (14:30)
[2019-08-14] MEDS ORDERED: PLEASE ENTER HEIGHT AND WEIGHT MC SCH (14:30)
--- NOTE | 2019-08-14 15:05 | NUR ---
Multiple RNs attempted IV access without success. Discussed pt condition and VS with Dr. Pabon. Per ok to wait for lab results to determine what type of IV access is required. Pt continues resting in bed, No change in condition.
[2019-08-14 15:11] LABS: MEAN CORPUSCULAR HEMOGLOBIN 28.8 pg (27.0-34.8); MEAN CORPUSCULAR HGB CONC 32.3 g/dL (32.4-35.8); MEAN CORPUSCULAR VOLUME 89.3 fL (80-100); MEAN PLATELET VOLUME 6.7 fL (7.4-10.4); PLATELET COUNT 561 x10^3/uL (130-400); RED BLOOD COUNT 3.68 x10^6/uL (3.82-5.3); RED CELL DISTRIBUTION WIDTH 19.9 % (9.6-15.2)
[2019-08-14 15:12] LABS: MD YES
--- NOTE | 2019-08-14 15:16 | NUR ---
Pt resting in bed, given her bag per request. Pt denies needs at this time.
[2019-08-14 15:17] LABS: ALBUMIN 2.5 g/dL (3.4-5.0); ANION GAP 8 mmol/L (5-15); CALCIUM 8.5 mg/dL (8.5-10.1); CHLORIDE 87 mmol/L (98-107); CREATININE 0.59 mg/dL (0.55-1.02)
[2019-08-14 15:22] LABS: TROPONIN I < 0.015 ng/mL (0.000-0.045)
[2019-08-14] MEDS ORDERED: AZITHROMYCIN 500 MG in SODIUM CHLORIDE 0.9% 250 ML IVPB ONE (15:30)
[2019-08-14] MEDS ORDERED: CEFTRIAXONE PMX 1GM/50ML 50 ML IVPB ONE (15:30)
[2019-08-14 15:36] LABS: ANISOCYTOSIS 2+; BAND#(MANUAL) 1.81 x10^3/uL; BANDS%(MANUAL) 10 % (0-7); METAMYELOCYTES# (MANUAL) 0.36 x10^3/uL (0-0); METAMYELOCYTES% (MANUAL) 2 % (0-1); MONOS#(MANUAL) 0.54 x10^3/uL (0.3-2.7); MONOS% (MANUAL) 3 % (2-9); MYELOCYTES# (MANUAL) 0.36 x10^3/uL (0-0); MYELOCYTES% (MANUAL) 2 % (0-0); SEG#(MANUAL) 15.02 x10^3/uL (1.8-6.8); SEGS% (MANUAL) 83 % (42-75)
[2019-08-14 15:37] LABS: HYPOCHROMIA 1+; POLYCHROMASIA 1+; TEAR DROPS 1+
[2019-08-14 15:38] LABS: <PLATELET ESTIMATE> INCREASED; LARGE PLATELETS 1+; OVALOCYTES 1+
--- NOTE | 2019-08-14 15:59 | NUR ---
REPORT FROM MICHAEL DAIGLE. PT WAITING FOR PICC LINE TO BE PLACED AND THEN ABX WILL BE HUNG
[2019-08-14] MEDS ORDERED: SODIUM CHLORIDE FLUSH 10ML SYR IVF PRN (16:00)
--- NOTE | 2019-08-14 16:02 | NUR ---
ATTEMPTED TO START IV WITHOUT SUCCESS. PICC LINE TO BE ORDERED
[2019-08-14] MEDS ORDERED: SODIUM CHLORIDE 0.9% 1,000 ML IV SCH ×2 (16:16→22:30)
--- NOTE | 2019-08-14 16:20 | NUR ---
Called Radiology and spoke with Mike who states that he will ensure IR is aware that pt needs a STAT PICC line placed. Awaiting PICC line placement.
[2019-08-14] MEDS ORDERED: VANCOMYCIN PER PHARMACY MC PRN (16:30)
[2019-08-14] MEDS ORDERED: ACETAMINOPHEN 325 MG TABLET PO PRN (16:30)
[2019-08-14 16:40] LABS: HCT (SEDRATE) 32.9 % (34.6-47.8)
--- NOTE | 2019-08-14 17:01 | NUR ---
[facility] TRANSPORTED PT FROM 39 TO 37
--- NOTE | 2019-08-14 17:28 | NUR ---
ATTEMPTED TO CHANGE PT TO OXY MASK. PT O2 SATS DROPPED. PT PLACED BACK ON NON REBREATHER.
--- NOTE | 2019-08-14 17:40 | NUR ---
Report called to Pattie DAIGLE in ICU. Floor ready for pt transport.
[2019-08-14] MEDS ORDERED: PHARMACOKINETIC MONITORING MC PRN (19:00)
[2019-08-14] MEDS ORDERED: PHARMACOKINETIC CONSULTATION MC ONE (19:00)
[2019-08-14] MEDS ORDERED: VANCOMYCIN 1,500 MG in SODIUM CHLORIDE 0.9% 250 ML IV ONE (19:00)
[2019-08-14] MEDS: MEROPENEM 1 GM in SODIUM CHLORIDE 0.9% 100 ML IV SCH (20:48)
[2019-08-14] MEDS: RIVAROXABAN 20 MG TABLET PO SCH (21:24)
[2019-08-14] MEDS: OXYcodone/APAP 5/325MG TABLET PO PRN (23:09)
[2019-08-15 01:27] VITALS: BP 134/85
[2019-08-15] MEDS: MEROPENEM 1 GM in SODIUM CHLORIDE 0.9% 100 ML IV SCH ×3 (03:33→20:17)
[2019-08-15] MEDS: OXYcodone/APAP 5/325MG TABLET PO PRN (03:34)
[2019-08-15] MEDS ORDERED: ALBUTEROL/IPRATROPIUM 2.5MG/0.5MG, 3 ML ONE (03:47)
[2019-08-15 03:51] LABS: MEAN CORPUSCULAR HEMOGLOBIN 28.6 pg (27.0-34.8); MEAN CORPUSCULAR HGB CONC 32.3 g/dL (32.4-35.8); MEAN CORPUSCULAR VOLUME 88.7 fL (80-100); MEAN PLATELET VOLUME 6.5 fL (7.4-10.4); PLATELET COUNT 493 x10^3/uL (130-400); RED BLOOD COUNT 3.46 x10^6/uL (3.82-5.3); RED CELL DISTRIBUTION WIDTH 19.6 % (9.6-15.2)
[2019-08-15] MEDS ORDERED: ALBUTEROL/IPRATROPIUM 2.5MG/0.5MG, 3 ML NPPB PRN (04:00)
[2019-08-15 04:04] LABS: ANION GAP 5 mmol/L (5-15); CALCIUM 8.2 mg/dL (8.5-10.1); CHLORIDE 89 mmol/L (98-107); CREATININE 0.46 mg/dL (0.55-1.02)
[2019-08-15 04:16] LABS: BASOPHILS # (AUTO) 0.02 x10^3/uL (0-0.1); BASOPHILS % (AUTO) 0 % (0-1); EOSINOPHILS # (AUTO) 0.01 x10^3/uL (0-0.4); EOSINOPHILS % (AUTO) 0 % (1-7); LYMPHOCYTES # (AUTO) 0.36 x10^3/uL (1-3.4); LYMPHOCYTES % (AUTO) 2 % (22-44); MD SCAN; MONOCYTES # (AUTO) 0.95 x10^3/uL (0.2-0.8); MONOCYTES % (AUTO) 6 % (2-9); NEUTROPHILS # (AUTO) 15.16 x10^3/uL (1.8-6.8); NEUTROPHILS % (AUTO) 92 % (42-75)
[2019-08-15] MEDS: FUROSEMIDE 40 MG/4 ML IV SCH ×2 (07:30→14:55)
[2019-08-15] MEDS: VANCOMYCIN 1,200 MG in SODIUM CHLORIDE 0.9% 250 ML IV SCH ×2 (08:38→20:00)
[2019-08-15] MEDS: morphine SULFATE 10 MG/ML, 1ML IVPush PRN ×2 (08:49→12:36)
[2019-08-15] MEDS ORDERED: AMIODARONE 200 MG TABLET PO SCH (09:00)
[2019-08-15] MEDS ORDERED: LORazepam 2 MG/ML, 1ML IVPush ONE (09:00)
[2019-08-15] MEDS ORDERED: METOPROLOL SUCCINATE 50 MG TAB.ER.24H PO SCH (09:00)
[2019-08-15] MEDS ORDERED: MORPHINE 30MG/30ML PCA.SYR IV PRN (09:30)
[2019-08-15] MEDS ORDERED: ATROPINE OPHTH SOLN 1%, 5ML PO PRN ×2 (09:30→20:30)
[2019-08-15] MEDS ORDERED: ONDANSETRON 2MG/ML, 2ML IVPush PRN (09:30)
[2019-08-15] MEDS: LORazepam 2 MG/ML, 1ML IVPush PRN ×3 (12:43→20:16)
[2019-08-15] MEDS: RIVAROXABAN 20 MG TABLET PO SCH (20:17)
[2019-08-15] MEDS ORDERED: SCOPOLAMINE 1MG PATCH TD PRN (20:30)
== END 2019-08-16 01:27 | disposition expired | DRG 193 ==
LOC: ED 15:16 → EDIP 15:35 → ICU 18:07 → 3N 08-15 20:01
PROVIDERS: ADMIT Internal Medicine; ATTEND Internal Medicine
PROC: 02HV33Z Insertion of Infusion Device into Superior Vena Cava, Percutaneous Approach (ICD-10-PCS; principal; 2019-08-14)
PROC: B548ZZA Ultrasonography of Superior Vena Cava, Guidance (ICD-10-PCS; 2019-08-14)
DX: J15.9 Unspecified bacterial pneumonia (principal); E43 Unspecified severe protein-calorie malnutrition; J96.21 Acute and chronic respiratory failure with hypoxia; C78.1 Secondary malignant neoplasm of mediastinum; E87.1 Hypo-osmolality and hyponatremia; E87.2 Acidosis; F11.20 Opioid dependence, uncomplicated; I87.1 Compression of vein; C50.919 Malignant neoplasm of unspecified site of unspecified female breast; D64.9 Anemia, unspecified; E87.8 Other disorders of electrolyte and fluid balance, not elsewhere classified; I48.91 Unspecified atrial fibrillation; K21.9 Gastro-esophageal reflux disease without esophagitis; K59.00 Constipation, unspecified; Z51.5 Encounter for palliative care; Z79.01 Long term (current) use of anticoagulants; Z92.21 Personal history of antineoplastic chemotherapy; Z95.0 Presence of cardiac pacemaker; Z88.0 Allergy status to penicillin; Z88.8 Allergy status to other drugs, medicaments and biological substances; Z68.23 Body mass index [BMI] 23.0-23.9, adult
CPT/HCPCS: 36415; 36573; 36600; 71045; 80048; 82040; 82803; 83605; 83880; 84145; 84484; 85025; 85651; 86140; 87040; 87081; 93005; 94640; 99285; G0378; J1940; J2185; J3370; C1751; J2060; J2270; J7030; J7050